=== PATIENT | female | born 1975 | race African-American/Black ===

== ENCOUNTER 2016-08-19 01:01 | Emergency (ER) | payer OTHER ==
[~2016-08-19 01:01] MED LIST: BACT800T5 PO; IBUP800T23 PO; NAPR500 PO
[2016-08-19 01:13] VITALS: BP 109/55; PULSE 93; RESP 20; TEMP 98.2; O2SAT 96
--- NOTE | 2016-08-19 01:42 | RADRPT ---
EXAM DATE/TIME: 08/19/2016 01:28 [facility] COMPARISON: CHEST SINGLE AP, December 19, 2014, 1:38. INDICATIONS : Pt states that when she is cold there is a sharp pain in her chest. MEDICAL HISTORY : None. SURGICAL HISTORY : None. ENCOUNTER: Initial ACUITY: 1 day PAIN SCORE: 8/10 LOCATION: Bilateral chest FINDINGS: 2 AP views of the chest demonstrate a normal-sized cardiac silhouette. There is a possible air space opacity in the left mid lung zone. No pleural effusion or pneumothorax is identified. The bones and s oft tissues demonstrate no acute finding. CONCLUSION: Possible mild airspace consolidation in the left midlung zone. Consider followup with good inspirator y formal PA and lateral views of the chest to further evaluate and to document resolution. Den Tran MD on August 19, 2016 at 1:39 Board Certified Radiologist. This report was verified electronically.
[2016-08-19 01:43] LABS: AUTOMATED NEUTROPHIL # 9.4 TH/MM3 (1.8-7.7); BASOPHIL % 0.3 % (0.0-2.0); EOSINOPHIL % 0.1 % (0.0-4.0); HEMATOCRIT 36.2 % (35.0-46.0); HEMO FLAGS DIFF FINAL; LYMPH % 10.1 % (9.0-44.0); LYMPHOCYTE # 1.1 TH/MM3 (1.0-4.8); MEAN CELL VOLUME 79.6 FL (80.0-100.0); MEAN CORPUSCULAR HGB CONC 33.8 % (32.0-36.0); MONO % 1.8 % (0.0-8.0); NEUT % 87.7 % (16.0-70.0); PLATELET COUNT 130 TH/MM3 (150-450); RED BLOOD COUNT 4.54 MIL/MM3 (4.00-5.30); RED CELL DISTRIBUTION WIDTH 13.7 % (11.6-17.2); WHITE BLOOD COUNT 10.7 TH/MM3 (4.0-11.0)
[2016-08-19 01:56] LABS: ANION GAP 7 MEQ/L (5-15); BICARBONATE 24.5 MEQ/L (21.0-32.0); BLOOD UREA NITROGEN 17 MG/DL (7-18); CHLORIDE 109 MEQ/L (98-107); GLOMERULAR FILTRATION RATE 64 ML/MIN (>89); POTASSIUM 3.7 MEQ/L (3.5-5.1); SODIUM (NA) 140 MEQ/L (136-145)
[2016-08-19 02:00] LABS: CREATINE KINASE 184 U/L (26-192)
[2016-08-19 02:12] LABS: CKMB 0.8 NG/ML (0.5-3.6)
[2016-08-19 02:30] LABS: BLOOD, URINE NEG (NEG); COMMENT (UR) CULT NOT INDICATED; CULTURE IF INDICATED CULT NOT INDICATED; GLUCOSE,URINE NEG (NEG); KETONE, URINE NEG (NEG); MUCUS URINE FEW /lpf (OCC); NITRITE,URINE NEG (NEG); PH, URINE 5.5 (5.0-8.5); SQUAMOUS EPITHELIAL CELL URINE 2 /hpf (0-5); URINE COLOR YELLOW (YELLW/STRAW)
[2016-08-19] MEDS ORDERED: AZIT250T3 PO (03:28)
--- NOTE | 2016-08-19 03:29 | PD ---
HPI Chief Complaint: Chest Pain Time Seen by Provider: 03:19 Travel History International Travel<30 days: No Contact w/Intl Traveler<30days: No Traveled to known affect area: No History of Present Illness HPI 41-year-old female arrives here complaining of cough for about 1 day. Cough is not productive. Patient denies chest pain with coughing. She has no resting chest pain or chest pain on exertion. There is no radiation of pain. Severity moderate. She denies fever. Onset gradual. PFSH Past Medical History Arthritis: No Asthma: No Bipolar Disorder: Yes Anxiety: Yes Depression: Yes Heart Rhythm Problems: No Cardiovascular Problems: No High Cholesterol: No Chest Pain: No Congestive Heart Failure: No COPD: No Cerebrovascular Accident: Yes Diabetes: Yes Diminished Hearing: No Gastrointestinal Disorders: No GERD: No Genitourinary: No Headaches: No Hepatitis: No Hiatal Hernia: No Hypertension: Yes Kidney Stones: No Musculoskeletal: No Neurologic: No Psychiatric: Yes (SCHIZOPHRENIC ) Reproductive: No Integumentary: Yes (HX OF ABCESS BUTTOCKS) Migraines: No Myocardial Infarction: No Renal Failure: No Schizophrenia: Yes Seizures: No Sleep Apnea: No Thyroid Disease: No Ulcer: No ?: Not LMP: "ABOUT 2 MONTHS AGO", PT STATES SHE IS IRREGULAR : 1 Para: 0 Past Surgical History Abdominal Surgery: No Appendectomy: No Cardiac Surgery: No Cholecystectomy: No Ear Surgery: No Endocrine Surgery: No Eye Surgery: No Genitourinary Surgery: No Gynecologic Surgery: No Oral Surgery: No Thoracic Surgery: No Social History Alcohol Use: No Tobacco Use: Yes (1 PPD) Substance Use: Yes (COCAINE YESTERDAY) Allergies-Medications (Allergen,Severity, Reaction): Coded Allergies: No Known Allergies (Verified , 08/19/16) Reported Meds & Prescriptions Reported Meds & Active Scripts Active Azithromycin 250 Mg Tab 250 Mg PO DAILY 4 Days Review of Systems Except as stated in HPI: all other systems reviewed are Neg Physical Exam Narrative GENERAL: 41-year-old female no acute distress resting comfortably on bed SKIN: Warm and dry. HEAD: Atraumatic. Normocephalic. EYES: Pupils equal and round. No scleral icterus. No injection or drainage. ENT: No nasal bleeding or discharge. Mucous membranes pink and moist. NECK: Trachea midline. No JVD. CARDIOVASCULAR: Regular rate and rhythm. No murmur appreciated. RESPIRATORY: No accessory muscle use. Breath sounds equal bilaterally. Crackles left lung. GASTROINTESTINAL: Abdomen soft, non-tender, nondistended. Hepatic and splenic margins not palpable. MUSCULOSKELETAL: No obvious deformities. No clubbing. No cyanosis. No edema. NEUROLOGICAL: Awake and alert. No obvious cranial nerve deficits. Motor grossly within normal limits. Normal speech. PSYCHIATRIC: Appropriate mood and affect; insight and judgment normal. Data Data Last Documented VS Vital Signs Date Time Temp Pulse Resp B/P Pulse Ox O2 Delivery O2 Flow Rate FiO2 08/19/16 01:15 93 96 Room Air 08/19/16 01:13 98.2 20 109/55 Orders Electrocardiogram (08/19/16 01:20) Complete Blood Count With Diff (08/19/16 01:20) Basic Metabolic Panel (Bmp) (08/19/16 01:20) Ckmb (Isoenzyme) Profile (08/19/16 01:20) Troponin I (08/19/16 01:20) Chest, Single Ap (08/19/16 01:20) CKMB (08/19/16 01:20) CKMB% (08/19/16 01:20) Urinalysis - C+S If Indicated (08/19/16 02:01) Influenzae A/B Antigen (08/19/16 02:01) Ed Urine Pregnancytest Poc (08/19/16 02:01) Azithromycin (Zithromax) (08/19/16 03:30) Labs Laboratory Tests Test 08/19/16 08/19/16 01:20 02:00 White Blood Count 10.7 TH/MM3 Red Blood Count 4.54 MIL/MM3 Hemoglobin 12.2 GM/DL Hematocrit 36.2 % Mean Corpuscular Volume 79.6 FL Mean Corpuscular Hemoglobin 27.0 PG Mean Corpuscular Hemoglobin 33.8 % Concent Red Cell Distribution Width 13.7 % Platelet Count 130 TH/MM3 Mean Platelet Volume 9.7 FL Neutrophils (%) (Auto) 87.7 % Lymphocytes (%) (Auto) 10.1 % Monocytes (%) (Auto) 1.8 % Eosinophils (%) (Auto) 0.1 % Basophils (%) (Auto) 0.3 % Neutrophils # (Auto) 9.4 TH/MM3 Lymphocytes # (Auto) 1.1 TH/MM3 Monocytes # (Auto) 0.2 TH/MM3 Eosinophils # (Auto) 0.0 TH/MM3 Basophils # (Auto) 0.0 TH/MM3 CBC Comment DIFF FINAL Differential Comment Sodium Level 140 MEQ/L Potassium Level 3.7 MEQ/L Chloride Level 109 MEQ/L Carbon Dioxide Level 24.5 MEQ/L Anion Gap 7 MEQ/L Blood Urea Nitrogen 17 MG/DL Creatinine 1.15 MG/DL Estimat Glomerular Filtration 64 ML/MIN Rate Random Glucose 99 MG/DL Calcium Level 8.2 MG/DL Total Creatine Kinase 184 U/L Creatine Kinase MB 0.8 NG/ML Troponin I LESS THAN 0.02 NG/ML Urine Color YELLOW Urine Turbidity CLEAR Urine pH 5.5 Urine Specific [place] 1.024 Urine Protein NEG mg/dL Urine Glucose (UA) NEG mg/dL Urine Ketones NEG mg/dL Urine Occult Blood NEG Urine Nitrite NEG Urine Bilirubin NEG Urine Urobilinogen 2.0 MG/DL Urine Leukocyte Esterase NEG Urine RBC 1 /hpf Urine WBC 2 /hpf Urine Squamous Epithelial 2 /hpf Cells Urine Mucus FEW /lpf Microscopic Urinalysis Comment CULT NOT INDICATED MDM Medical Decision Making Medical Screen Exam Complete: Yes Emergency Medical Condition: Yes Differential Diagnosis Pneumonia, bronchitis, anemia Narrative Course Chest x-ray reveals a left lung consolidation Troponin is undetectable CBC & BMP Diagram 08/19/16 01:20 The patient is resting comfortably and feels better, is alert and in no distress. The patients results and examination findings were discussed. The repeat examination is unremarkable and benign. The history, exam, diagnostic testing, and current condition do not suggest any significant pathology to warrant further testing, continued ED treatment, admission, or surgical evaluation at this point. The vital signs have been stable. The patient does not have uncontrollable pain, intractable vomiting, or other significant symptoms. The patient's condition is stable and appropriate for discharge. The patient will pursue further outpatient evaluation with a primary care physician or other designated or consulting physician as indicated in the discharge instructions. The patient expressed understanding and was agreeable with this plan. Diagnosis Primary Impression: PNA (pneumonia) Qualified Code: J18.9 - Pneumonia of left lung due to infectious organism, unspecified part of lung Referrals: Primary Care Physician 1 week Additional Instructions: You have a choice when it comes to health care, and we are glad that you chose [facility]. Hopefully, we have met your expectations on today's visit. You are welcome to return to [facility] at any time, as we are committed to meeting the health care needs of our community. Med/Other Pt SpecificInfo: Prescription(s) given Scripts Azithromycin 250 Mg [id number] Mg PO DAILY 4 Days Ref 0 Prov:Julian Woods MD 08/19/16 Disposition: 01 DISCHARGE HOME Condition: Stable Julian Woods MD Aug 19, 2016 03:28
[2016-08-19] MEDS ORDERED: AZITHROMYCIN 250 MG TAB PO ONE (03:30)
--- NOTE | 2016-08-19 13:53 | EKG ---
Date Performed: 08/19/2016 Time Performed: 01:52:00 PTAGE: 41 years EKG: Sinus rhythm POSSIBLE LEFT ATRIAL ENLARGEMENT NONSPECIFIC T-WAVE ABNORMALITY Compared to the previous tracing, th ere has been an increase in the inferolateral ST-T wave changes Clinical correlation is advised MIRNA LICONA ECG PREVIOUS TRACING : 11/25/2015 22.22 DOCTOR: Alejandra Liu Interpretating Date/Time 08/19/2016 13:46:01
== END 2016-08-19 04:07 | disposition home or self-care (01) ==
LOC: NEDAMB 01:01
DX: J18.9 Pneumonia, unspecified organism (principal); R94.31 Abnormal electrocardiogram [ECG] [EKG]; E11.9 Type 2 diabetes mellitus without complications; I10 Essential (primary) hypertension; F17.200 Nicotine dependence, unspecified, uncomplicated; Z86.59 Personal history of other mental and behavioral disorders
CPT/HCPCS: 71010; 80048; 81001; 82550; 82552; 84484; 84703; 85025; 87804; 93005

== ENCOUNTER 2016-09-03 04:26 | Emergency (ER) | payer OTHER ==
[~2016-09-03] VITALS: Ht 160 cm; Wt 60.0 kg
[~2016-09-03 04:26] MED LIST changes: +AZIT250T3 PO; -BACT800T5 PO; -IBUP800T23 PO; -NAPR500 PO
[2016-09-03 04:29] VITALS: BP 101/55; PULSE 82; RESP 16; TEMP 98.9; O2SAT 96
--- NOTE | 2016-09-03 04:33 | PD ---
HPI Chief Complaint: Cold / Flu Symptoms Time Seen by Provider: 04:33 Travel History International Travel<30 days: No Contact w/Intl Traveler<30days: No Traveled to known affect area: No History of Present Illness HPI 41-year-old female with history of a bipolar disorder, currently not taking her medication, and recent diagnosis of pneumonia August 19, 2016, presents to the emergency department for evaluation of persistent cough. Patient states that the cough away. She has finished her antibiotics but despite this she feels that she has not gotten better. Dates that time she fills chilled and believes she may have a fever. Denies any nausea or vomiting. No diarrhea. Cough is nonproductive. She has no other symptoms to report.. PFSH Past Medical History Arthritis: No Asthma: No Bipolar Disorder: Yes Anxiety: Yes Depression: Yes Heart Rhythm Problems: No Cardiovascular Problems: No High Cholesterol: No Chest Pain: No Congestive Heart Failure: No COPD: No Cerebrovascular Accident: Yes Diabetes: Yes Diminished Hearing: No Gastrointestinal Disorders: No GERD: No Genitourinary: No Headaches: No Hepatitis: No Hiatal Hernia: No Hypertension: Yes Kidney Stones: No Musculoskeletal: No Neurologic: No Psychiatric: Yes (SCHIZOPHRENIC ) Reproductive: No Integumentary: Yes (HX OF ABCESS BUTTOCKS) Migraines: No Myocardial Infarction: No Renal Failure: No Schizophrenia: Yes Seizures: No Sleep Apnea: No Thyroid Disease: No Ulcer: No LMP: UNK : 1 Para: 0 Past Surgical History Abdominal Surgery: No Appendectomy: No Cardiac Surgery: No Cholecystectomy: No Ear Surgery: No Endocrine Surgery: No Eye Surgery: No Genitourinary Surgery: No Gynecologic Surgery: No Oral Surgery: No Thoracic Surgery: No Social History Alcohol Use: No Tobacco Use: Yes (1 PPD) Substance Use: Yes (COCAINE YESTERDAY) Allergies-Medications (Allergen,Severity, Reaction): Coded Allergies: No Known Allergies (Verified , 09/03/16) Reported Meds & Prescriptions Reported Meds & Active Scripts Active Tessalon Perles (Benzonatate) 100 Mg Cap 200 Mg PO TID PRN Review of Systems Except as stated in HPI: all other systems reviewed are Neg Physical Exam Narrative GENERAL: Well-nourished, well-developed female patient, in no acute distress SKIN: Warm and dry. HEAD: Normocephalic. EYES: No scleral icterus. No injection or drainage. NECK: Supple, trachea midline. No JVD or lymphadenopathy. CARDIOVASCULAR: Regular rate and rhythm without murmurs, gallops, or rubs. RESPIRATORY: Breath sounds equal bilaterally. No accessory muscle use. GASTROINTESTINAL: Abdomen soft, non-tender, nondistended. MUSCULOSKELETAL: No cyanosis, or edema. BACK: Nontender without obvious deformity. No CVA tenderness. Data Data Last Documented VS Vital Signs Date Time Temp Pulse Resp B/P Pulse Ox O2 Delivery O2 Flow Rate FiO2 09/03/16 04:32 16 96 Room Air 09/03/16 04:29 98.9 82 101/55 Orders Chest, Single Ap (09/03/16 ) [facility] Medical Decision Making Medical Screen Exam Complete: Yes Emergency Medical Condition: Yes Medical Record Reviewed: Yes Differential Diagnosis Pneumonia resolved versus worsening versus improved versus URI versus bronchitis versus bronchospasm versus foreign body Narrative Course 41-year-old female presents to emergency department for evaluation of a persistent cough. Patient appears without distress. Chest x-rays without acute cardiopulmonary disease. Patient will be given Tessalon Perles. I have encouraged her to follow-up with her primary care provider. She agrees to return immediately with any acute worsening of symptoms. Diagnosis Primary Impression: Cough Referrals: Primary Care Physician Patient Instructions: Acute Cough (GEN), General Instructions Additional Instructions: Follow-up with your primary care provider Return immediately to the emergency department with any acute worsening of symptoms Med/Other Pt SpecificInfo: Prescription(s) given Scripts Benzonatate (Tessalon Perles)100 Mg [id number] Mg PO TID PRN (COUGH) #20 CAP Ref 0 Prov:Tressa Landeros 09/03/16 Disposition: 01 DISCHARGE HOME Condition: Stable Tressa Landeros Sep 03, 2016 04:33
--- NOTE | 2016-09-03 05:20 | RADRPT ---
EXAM DATE/TIME: 09/03/2016 04:30 [facility] COMPARISON: CHEST SINGLE AP, August 19, 2016, 1:28. INDICATIONS : Cough. MEDICAL HISTORY : None. SURGICAL HISTORY : None. ENCOUNTER: Initial ACUITY: 1 day PAIN SCORE: 0/10 LOCATION: Bilateral chest FINDINGS: A single view of the chest demonstrates the lungs to be symmetrically aerated without evidence of mas s, infiltrate or effusion. The cardiomediastinal contours are unremarkable. Osseous structures are intact. CONCLUSION: 1. No acute cardiopulmonary disease. Robert Ny MD on September 03, 2016 at 5:19 Board Certified Radiologist. This report was verified electronically.
[2016-09-03] MEDS ORDERED: BENZ100 PO (05:24)
== END 2016-09-03 05:31 | disposition home or self-care (01) ==
LOC: NEPB 04:26
DX: R05 Cough (principal); F31.9 Bipolar disorder, unspecified; Z86.73 Personal history of transient ischemic attack (TIA), and cerebral infarction without residual deficits; E11.9 Type 2 diabetes mellitus without complications; I10 Essential (primary) hypertension; F20.9 Schizophrenia, unspecified; F17.210 Nicotine dependence, cigarettes, uncomplicated; F14.120 Cocaine abuse with intoxication, uncomplicated
CPT/HCPCS: 71010; 99283